=== PATIENT | male | born 1995 | race Caucasian/White ===

== ENCOUNTER 2016-10-07 11:17 | Emergency (ER) | payer OTHER ==
[~2016-10-07] VITALS: Ht 177.8 cm; Wt 70.0 kg
[~2016-10-07 11:17] MED LIST: RISP3 PO
[2016-10-07] MEDS ORDERED: BENZ1TAB10 PO (11:21)
[2016-10-07] MEDS ORDERED: IBUPROFEN 800 MG TABLET PO ONE (12:45)
[2016-10-07 12:59] VITALS: BP 112/64
== END 2016-10-07 13:30 | disposition home or self-care (01) ==
LOC: EMS 11:18
DX: R51 Headache (principal); F17.210 Nicotine dependence, cigarettes, uncomplicated
CPT/HCPCS: 99283